=== PATIENT | male | born 1955 | race Caucasian/White ===

== ENCOUNTER 2022-08-29 19:59 | Emergency (ER) | payer BC, OTHER ==
[2022-08-29] MEDS ORDERED: Sodium Chloride 0.9% 10 ML Syringe FLUSH PRN (20:17)
[2022-08-29] MEDS: Sodium Chloride 0.9% 1,000 ML ONE (20:20)
[2022-08-29] MEDS: Sodium Chloride 0.9% 1,000 ML IV ONE ×2 (20:20→21:22)
[2022-08-29 20:23] LABS: BASOPHILS ABSOLUTE AUTO 0.02 10^3/uL (0.00-0.10); BASOPHILS PERCENT AUTO 0.2 % (0.0-1.0); EOSINOPHILS ABSOLUTE AUTO 0.29 10^3/uL (0.10-0.30); EOSINOPHILS PERCENT AUTO 2.3 % (1.0-3.0); HEMATOCRIT 43.5 % (40.0-52.0); HEMOGLOBIN 15.2 g/dL (13.0-17.0); IMMATURE GRAN ABSOLUTE AUTO 0.03 10^3/uL (0.00-0.50); IMMATURE GRAN PERCENT AUTO 0.2 % (0.0-5.0); LYMPHOCYTES ABSOLUTE AUTO 1.44 10^3/uL (1.00-4.00); LYMPHOCYTES PERCENT AUTO 11.4 % (20.0-40.0); MEAN CORPUSCULAR HGB CONC 34.9 g/dL (32.0-36.0); MEAN CORPUSCULAR VOLUME 94.6 fL (82.0-92.0); MEAN PLATELET VOLUME 9.9 fL (7.4-10.4); MONOCYTES ABSOLUTE AUTO 0.92 10^3/uL (0.10-0.80); MONOCYTES PERCENT AUTO 7.3 % (2.0-8.0); NEUTROPHILS ABSOLUTE AUTO 9.88 10^3/uL (2.50-7.00); NEUTROPHILS PERCENT AUTO 78.6 % (50.0-70.0); PLATELET COUNT,PLT 289 10^3/uL (150-400); RED CELL DISTRIBUTION WIDTH 12.8 % (11.5-14.5); WHITE BLOOD CELL COUNT,WBC 12.58 10^3/uL (5.00-10.00)
[2022-08-29 20:40] LABS: ALBUMIN 4.25 g/dL (3.40-5.00); ANION GAP 18.7 mmol/L (5-15); BILIRUBIN TOTAL 0.3 mg/dL (0.2-1.0); CALCIUM 9.2 mg/dL (8.7-10.3); CARBON DIOXIDE,CO2 21.3 mmol/L (21.0-32.0); CREATININE 1.24 mg/dL (0.51-1.17); EST CRCL DRUG DOSING (CG) 62.14 mL/min; PROTEIN TOTAL,TP 7.4 g/dL (6.4-8.2)
[2022-08-29 21:18] LABS: APPEARANCE,URINE SLIGHTLY CLOUDY (CLEAR); BILIRUBIN,URINE NEGATIVE (NEGATIVE); COLOR,URINE YELLOW (YELLOW); GLUCOSE,URINE NEGATIVE (NEGATIVE); KETONES,URINE TRACE mg/dL (NEGATIVE); LEUKOCYTE ESTERASE,URINE NEGATIVE (NEGATIVE); NITRITE,URINE NEGATIVE (NEGATIVE); OCCULT BLOOD,URINE NEGATIVE (NEGATIVE); PROTEIN,URINE NEGATIVE (NEGATIVE); UROBILINOGEN,URINE 0.2 E.U./dL (0.2-1.0)
== END 2022-08-29 22:25 | disposition home or self-care (01) ==
LOC: KA.ED 19:59
DX: R42 Dizziness and giddiness (principal); I45.10 Unspecified right bundle-branch block; N17.9 Acute kidney failure, unspecified; E11.65 Type 2 diabetes mellitus with hyperglycemia; E86.0 Dehydration; E78.00 Pure hypercholesterolemia, unspecified; I10 Essential (primary) hypertension; Z79.899 Other long term (current) drug therapy; Z79.84 Long term (current) use of oral hypoglycemic drugs
CPT/HCPCS: 36415; 80053; 81003; 84484; 85025; 93010; 96360; 96361; 99284; 99284-25; J7030